=== PATIENT | female | born 1970 | race Caucasian/White ===

== ENCOUNTER 2018-04-14 10:46 | Emergency (ER) | payer OTHER ==
[~2018-04-14] VITALS: Ht 167.6 cm; Wt 118.4 kg
[2018-04-14] MEDS ORDERED: AMLO5 PO (12:34)
[2018-04-14] MEDS ORDERED: SIMV40 PO (12:35)
[2018-04-14] MEDS ORDERED: BASAGLAR K100 UNIT/1 SC ×2 (12:35→13:35)
[2018-04-14] MEDS ORDERED: MELA3 PO ×2 (12:36→13:35)
[2018-04-14] MEDS ORDERED: ESCI10 PO (12:36)
[2018-04-14] MEDS ORDERED: IBUP600 PO (12:36)
[2018-04-14] MEDS ORDERED: METF500C PO ×2 (12:37→13:35)
[2018-04-14] MEDS ORDERED: Neurontin 100100 MG PO (13:35)
[2018-04-14] MEDS ORDERED: IBUP400 PO (13:35)
[2018-04-14] MEDS ORDERED: Norvasc5 MG PO (13:35)
[2018-04-14] MEDS ORDERED: ATOR10 PO (13:35)
[2018-04-14] MEDS ORDERED: Actos15 MG PO (13:35)
[2018-04-14] MEDS ORDERED: LOSA50 PO (13:35)
== END 2018-04-14 13:44 | disposition home or self-care (01) ==
LOC: ER 10:46
DX: Z76.0 Encounter for issue of repeat prescription (principal); I10 Essential (primary) hypertension; E11.40 Type 2 diabetes mellitus with diabetic neuropathy, unspecified; E78.5 Hyperlipidemia, unspecified; F17.200 Nicotine dependence, unspecified, uncomplicated; Z79.899 Other long term (current) drug therapy; Z79.4 Long term (current) use of insulin; Z79.84 Long term (current) use of oral hypoglycemic drugs
CPT/HCPCS: 99281

== ENCOUNTER 2018-04-17 18:13 | Emergency (ER) | payer OTHER ==
[~2018-04-17] VITALS: Ht 167.6 cm; Wt 117.5 kg
[~2018-04-17 18:13] MED LIST: AMLO5 PO; ATOR10 PO; Actos15 MG PO; BASAGLAR K100 UNIT/1 SC; ESCI10 PO; IBUP400 PO; IBUP600 PO; LOSA50 PO; MELA3 PO; METF500C PO; Neurontin 100100 MG PO; Norvasc5 MG PO; SIMV40 PO
[2018-04-17] MEDS ORDERED: Cephalexin500 MG PO (22:33)
== END 2018-04-17 22:54 | disposition home or self-care (01) ==
LOC: ER 18:13
DX: L03.116 Cellulitis of left lower limb (principal); Z59.0 Homelessness; Z79.899 Other long term (current) drug therapy; Z79.4 Long term (current) use of insulin; Z79.84 Long term (current) use of oral hypoglycemic drugs; E11.40 Type 2 diabetes mellitus with diabetic neuropathy, unspecified; I10 Essential (primary) hypertension; E78.5 Hyperlipidemia, unspecified
CPT/HCPCS: 99283

== ENCOUNTER 2018-04-19 15:49 | Emergency (ER) | payer OTHER ==
[~2018-04-19] VITALS: Ht 167.6 cm; Wt 116.1 kg
[~2018-04-19 15:49] MED LIST changes: +Cephalexin500 MG PO
== END 2018-04-19 17:40 | disposition home or self-care (01) ==
LOC: ER 15:49
DX: E11.622 Type 2 diabetes mellitus with other skin ulcer (principal); L97.529 Non-pressure chronic ulcer of other part of left foot with unspecified severity; E11.40 Type 2 diabetes mellitus with diabetic neuropathy, unspecified; I10 Essential (primary) hypertension; E78.5 Hyperlipidemia, unspecified; F17.210 Nicotine dependence, cigarettes, uncomplicated; Z88.6 Allergy status to analgesic agent; Z79.899 Other long term (current) drug therapy; Z79.4 Long term (current) use of insulin
CPT/HCPCS: 96372; 99283; J0696